=== PATIENT | female | born 1985 | race Caucasian/White ===

== ENCOUNTER 2017-12-27 07:33 | Inpatient (IN) | payer MEDICAID ==
[2017-12-27 08:54] VITALS: BMI 32.2
[2017-12-27] MEDS ORDERED: Oxytocin 30 UNIT 30 UNITS/500 ML BAG IV ONE (08:58)
[2017-12-27 09:39] LABS: BASO % 0.2 % (0.0-2.0); EOS # 0.1 K/uL (0.0-0.7); EOS % 1.1 % (0.0-4.0); HEMOGLOBIN 12.9 g/dL (12.0-16.0); LYMPH # 2.3 K/uL (1.0-4.3); LYMPH % 23.2 % (20.0-40.0); MEAN CELL VOLUME 84.7 fl (81.0-99.0); MEAN CORPUSCULAR HEMOGLOBIN 29.8 pg (27.0-31.0); MEAN CORPUSCULAR HGB CONC 35.2 g/dL (33.0-37.0); MONO # 0.7 K/uL (0.0-0.8); MONO % 6.6 % (0.0-10.0); NEUT # 6.8 K/uL (1.8-7.0); NEUT % 68.9 % (50.0-75.0); NRBC % 0.3 % (0.0-0.0); RBC 4.33 Mil/uL (3.80-5.20); RED CELL DISTRIBUTION WIDTH 15.8 % (11.5-14.5); WHITE BLOOD COUNT 9.9 K/uL (4.8-10.8)
--- NOTE | 2017-12-27 09:46 | OBADHP ---
Datetime: 12/27/2017 09:22 Admit Comment, IP Provider: This is a 32 yo f on 38.3 wk LMP 02/01/17, present to [facility] due to vaginal bleed and abdominal pressure. Pt state that she went to bathroom today at 6:00am and after s he wiped she noticed blood on toilet, and paper. She also state that she have been having this abdomi nal pressure and pain on urination starting this morning. She report feeling mild contraction and inf requent, she cant determine how much. Pt denies gush of fluid, trauma, or falls. PT last entercourse was 7 days ago, she denies fever chills or any other symptoms at moment. Pt state that she attend to all care, and take her medication. She did have an infection in september and was treated with ABx. ROS: Pts denies dizziness, chest pain, sob, abd pain, constipation, calf pain, or any other sympto ms. Allergy: none Med: PMH: Renal stone PSH: none SOcial denies smoke,drink or alcohol use Assessment: This is a 32 yo f on 38.3 wk LMP 02/01/17, present to [facility] due to vaginal bleed and abdominal pressure. Pt admitted for delivery Vitals: WNL Pt is lying comfortable in bed Pelvic exam: lakshmi blood noted on speculum exam, Pt is 5-6cm, 100%, -2 FHR: reassuring Plan Start delivery protocol Prepare Pitocin for after delivery call anesthesia F/U membrane status Monitor strip Monitor vitals case discussed with Dr jennifer Resendez PGY1 OB Hospitalist Addendum: Pt seen and examined by me. Agree w/ above. 32 yo at 38+3 wks c /o blood w/ wiping, abdominal pain and pressure, admitted in labor. On exam: speculum- dark blood se en coming from cx, VE: 6 cm/ 100/ 02 at 8:45 am. FHT reassuring. NST reactive. Will send ua and cx w/ routine ob labs. Will call for her records. (ES) Pelvic Type - PN: Adequate Extremities - PN: Normal Abdomen - PN: Normal Back - PN: Normal Breast - PN: Not Done Lungs - PN: Normal Heart - PN: Normal Thyroid - PN: Not Done Neurologic - PN: Not Done HEENT - PN: Normal General - PN: Normal Comments, ACOG Physical Exam: Pt is lying comfortable with no acute distress Cardio: s1 s2 heard no murmur or extra heart sound Lung are clear in all cuadrant Abd: BS+, mild tendereness on pelvic area, fundus above umbilcus extremities calf non tender pelvic exam : blood noted on speculum exam, 5-6cm, 100%, -2 Gestation - Est Wks by US: 38.3 Vital Signs Provider: Reviewed; Within Normal Limits IP Chief Complaint: Uterine contractions; Vaginal bleeding NICHD Accel Fetus A IP Provider: [id number] FHR Category Provider Fetus A: Category I NICHD Decel Fetus A IP Provider: None Dilatation, Provider: 6 Effacement, Provider: 100 Station, Provider: -2 Genitourinary Exam: Not Done DTRs - PN: Not Done EGA AdmitDate IP: 38.3 IP Adm Impression: Term, intrauterine IP Admit Plan: Admit to unit; Initiate labor protocol Datetime: 12/27/2017 09:00 Presentation-Admit: Vertex IP Fetus A Comments: 140 FHR - Baseline A Provider: 140 NICHD Variability Prov Fetus A: Moderate 6-25bpm
[2017-12-27] MEDS ORDERED: Lactated Ringer's 2,000 ML IV ONE (11:00)
[2017-12-27] MEDS ORDERED: Fentanyl/Bupivacaine HCl 250 ML EPI ONE (12:57)
[2017-12-27 13:38] VITALS: RESP 18; O2SAT 100
[2017-12-27] MEDS ORDERED: Lactated Ringer's 1,000 ML IV SCH (13:45)
[2017-12-27] MEDS: OXYTOCIN/0.9 % NS 20 UNIT/1,000 ML BAG IV SCH ×2 (15:00→17:57)
[2017-12-27] MEDS ORDERED: Oxycodone/Acetaminophen 5/325 mg Tab PO PRN ×2 (15:20→18:08)
[2017-12-27] MEDS ORDERED: Benzocaine/Menthol SPRAY TOP PRN ×2 (15:20→18:08)
--- NOTE | 2017-12-27 15:24 | OBDS ---
MATERNAL INFORMATION Provider Comments: Pt progressed to complete and pushed to deliver a viable male infant through meco nium-stained fluid at 1416. Apgars 9 and 9. Wi 3400 gms, 7#7.9. Nuchal cord x 1 easily reduced. In pramod placed on mother's abdomen. Cord doubly clamped and cut. Cord blood collected. Placenta deliv ered spontaneously intact at 1421. Left periurethral tear bleeding. Straight catheter placed in ur ethra. 3-0 rapide was used to repproximate left periurethral tear for hemostasis. Single interrupte d stitch of 3-0 rapide was placed in small right periurethral tear. Second degree tear was repaired w/ 2-0 rapide and 3-0v. Rectum intact. Pt and baby tolerated the procedure well. EBL 300mL LABOR SUMMARY EDC: 01/07/2018 00:00 No. Babies in Womb: 1
[2017-12-27] MEDS ORDERED: OXYTOCIN/0.9 % NS 20 UNIT/1,000 ML BAG IV SCH (18:08)
[2017-12-28 06:57] LABS: BASO # 0.1 K/uL (0.0-0.2); BASO % 0.7 % (0.0-2.0); EOS % 0.3 % (0.0-4.0); HEMOGLOBIN 11.6 g/dL (12.0-16.0); LYMPH # 1.3 K/uL (1.0-4.3); LYMPH % 9.5 % (20.0-40.0); MEAN CELL VOLUME 86.7 fl (81.0-99.0); MEAN CORPUSCULAR HEMOGLOBIN 28.7 pg (27.0-31.0); MEAN CORPUSCULAR HGB CONC 33.1 g/dL (33.0-37.0); MEAN PLATELET VOLUME 8.2 fl (7.2-11.7); MONO # 0.8 K/uL (0.0-0.8); MONO % 5.6 % (0.0-10.0); NEUT # 11.9 K/uL (1.8-7.0); NEUT % 83.9 % (50.0-75.0); PLATELET COUNT 226 K/uL (130-400); RBC 4.06 Mil/uL (3.80-5.20); WHITE BLOOD COUNT 14.2 K/uL (4.8-10.8)
--- NOTE | 2017-12-28 10:41 | OBPPN ---
Datetime: 12/28/2017 06:49 PP Pain Prov: Within normal limits PP Nausea Prov: Denies PP Heart Prov: Normal PP Lungs Prov: Normal PP Abdomen/Uterus Prov: Normal PP Lochia Prov: Normal PP Vulva/Perineum Prov: Normal PP CVA Tenderness Prov: Normal PP Extremities Prov: Normal PP C/S Incision Prov: Not Applicable PP Progress Prov: Normal PP Impression Prov: Normal progression PP Plan Prov: Continue present management PP Progress Note Prov: Patient seen and examined today in AM at bedside, Patient is now, in her PPD1 today. Patient reports mild pelvic pain that gets relief with medication. Patient states she is ambulating w/o difficulties or dizziness, voiding well with no blood in urine and adequate output, p atient reports passing gas per rectum, but has not had a BM yet, she is tolerating solid food, lochia is more than menses in volume but patient reports is less volume than yesterday. Patient is breastfe eding and bottle feeding. Physical exam: GEN: NAD HEENT: Normocephalic, EOMI RESP: CTA b/l CV: RRR, S1 S2, no murmurs noted. ABD: Soft, BS present, uterus firm at umbilicus level LE: No edema, Davey's negative. A/P 32 y/o today in PPD1 with appropiate post- progression -continue current post- management -VS q 6 h -Motrin 600 mg PO Q6h prn pain -Docusate 100 PO QHS -Encourage and ambulation -D/C kim Hilliard MD PGY1 OB Hospitalist on-call. On rounds I saw and examined this patinet. Agree with note. NATACHA bourne ck prental labs prior to discharge rubella/VZV Vital Signs Provider PP: Reviewed; Within Normal Limits
[2017-12-28 12:40] LABS: ANISOCYTOSIS SLIGHT; BANDS 4 % (0-2); HYPOCHROMIC SLIGHT; LYMPHOCYTE 10 % (20-50); MONOCYTE 4 % (0-10); NEUTROPHIL 82 % (42-75); PLATELET ESTIMATE NORMAL (NORMAL); TOTAL CELLS COUNTED 100
--- NOTE | 2017-12-28 16:43 | OBPPN ---
Datetime: 12/28/2017 16:00 PP Pain Prov: Within normal limits PP Nausea Prov: Denies PP Flatus Prov: Yes PP BM Prov: Yes PP Breasts Prov: Normal PP Heart Prov: Normal PP Lungs Prov: Normal PP Abdomen/Uterus Prov: Normal PP Lochia Prov: Normal PP Vulva/Perineum Prov: Normal PP CVA Tenderness Prov: Normal PP Extremities Prov: Normal PP Progress Prov: Normal PP Impression Prov: Increased temperature PP Plan Prov: Antibiotic therapy PP Progress Note Prov: Notified of Temp 103. She was just seen by social service. She feels some dys uria, some freq, no urgency. No Abd pain; no perinela pain. Ambulating without diff. She had epidural and barron catheter in pl latesha Abd non tender perineum intact no swelling Breast not engorged A; S/P day1; fever PLAN: UA;C_S; Tylenol po and IV Abx...check CBC Vital Signs Provider PP: Reviewed
[2017-12-28 18:47] LABS: SQUAMOUS EPITHIAL 9 /hpf (0-5); URINE BACTERIA MOD (<OCC); URINE BILIRUBIN NEGATIVE (NEGATIVE); URINE BLOOD LARGE (NEGATIVE); URINE CLARITY CLOUDY (Clear); URINE COLOR RED (YELLOW); URINE GLUCOSE (UA) NEG (Normal); URINE LEUKOCYTE ESTERASE LARGE Leu/uL (Negative); URINE PROTEIN 30 mg/dL (NEGATIVE); URINE UROBILINOGEN 0.2-1.0 mg/dL (0.2-1.0)
[2017-12-28 18:59] LABS: BASO # 0.1 K/uL (0.0-0.2); BASO % 0.7 % (0.0-2.0); EOS # 0.1 K/uL (0.0-0.7); EOS % 0.4 % (0.0-4.0); HEMOGLOBIN 12.1 g/dL (12.0-16.0); LYMPH % 12.1 % (20.0-40.0); MEAN CELL VOLUME 85.5 fl (81.0-99.0); MEAN CORPUSCULAR HEMOGLOBIN 28.8 pg (27.0-31.0); MEAN CORPUSCULAR HGB CONC 33.7 g/dL (33.0-37.0); MEAN PLATELET VOLUME 8.2 fl (7.2-11.7); MONO % 6.3 % (0.0-10.0); NEUT # 13.1 K/uL (1.8-7.0); NEUT % 80.5 % (50.0-75.0); NRBC % 0.2 % (0.0-0.0); RBC 4.21 Mil/uL (3.80-5.20); RED CELL DISTRIBUTION WIDTH 16.4 % (11.5-14.5); WHITE BLOOD COUNT 16.3 K/uL (4.8-10.8)
[2017-12-28] MEDS: AMPicillin 2 GM in Sodium Chloride 0.9% 100 ML IVPB SCH (22:45)
[2017-12-29] MEDS: Sodium Chloride 0.9% 1,000 ML IV SCH ×3 (01:05→22:00)
[2017-12-29] MEDS: AMPicillin 2 GM in Sodium Chloride 0.9% 100 ML IVPB SCH ×4 (04:15→21:54)
[2017-12-29 06:49] LABS: BASO % 0.2 % (0.0-2.0); EOS % 0.3 % (0.0-4.0); HEMOGLOBIN 11.4 g/dL (12.0-16.0); LYMPH # 1.7 K/uL (1.0-4.3); MEAN CELL VOLUME 85.5 fl (81.0-99.0); MEAN CORPUSCULAR HEMOGLOBIN 29.2 pg (27.0-31.0); MEAN CORPUSCULAR HGB CONC 34.1 g/dL (33.0-37.0); MEAN PLATELET VOLUME 8.2 fl (7.2-11.7); MONO % 8.2 % (0.0-10.0); NEUT # 9.3 K/uL (1.8-7.0); NEUT % 77.3 % (50.0-75.0); RBC 3.91 Mil/uL (3.80-5.20); RED CELL DISTRIBUTION WIDTH 16.3 % (11.5-14.5)
[2017-12-29] MEDS ORDERED: Measles, Mumps, and Rubella 0.5 ML VIAL SC ONE (09:00)
[2017-12-29 11:11] LABS: BASO % 0.3 % (0.0-2.0); EOS % 0.3 % (0.0-4.0); HEMOGLOBIN 11.6 g/dL (12.0-16.0); LYMPH # 1.4 K/uL (1.0-4.3); MEAN CELL VOLUME 85.9 fl (81.0-99.0); MEAN CORPUSCULAR HEMOGLOBIN 29.3 pg (27.0-31.0); MEAN CORPUSCULAR HGB CONC 34.2 g/dL (33.0-37.0); MEAN PLATELET VOLUME 8.4 fl (7.2-11.7); MONO % 7.5 % (0.0-10.0); NEUT # 10.5 K/uL (1.8-7.0); NEUT % 80.9 % (50.0-75.0); NRBC % 0.1 % (0.0-0.0); RBC 3.96 Mil/uL (3.80-5.20); RED CELL DISTRIBUTION WIDTH 16.2 % (11.5-14.5)
--- NOTE | 2017-12-29 11:24 | OBPPN ---
Datetime: 12/29/2017 01:01 PP Pain Prov: Within normal limits PP Nausea Prov: Denies PP Flatus Prov: Yes PP BM Prov: No PP Breasts Prov: Normal PP Heart Prov: Normal PP Lungs Prov: Normal PP Abdomen/Uterus Prov: Normal PP Lochia Prov: Normal PP CVA Tenderness Prov: Normal PP Extremities Prov: Normal PP Progress Prov: Normal PP Comments Phys Exam Prov: See Pregress note PE breast nonengorged uterus firm, nt; 1cm below umbilicus PP Plan Prov: Continue present management; Antibiotic therapy PP Impression Other Prov: PP fever PP Progress Note Prov: Patient seen and examined this AM at bedside after I am notified by RN of Tem p 101.8 F and patient is feeling cold. Patient is today in her PPD2 after . Patient c/o some chil ls, and feeling cold, also c/o mild sore throat and some dysuria, patient denies any other symptom at this time, she denies cough, chest pain, SOB, palpitations, calf pain, abdominal pain, COY, dizziness , N/V. Patient is ambulating in the room, she states she is passing gas per rectum, but has not had a BM yet, she reports lochia is less than menses in volume. Physical Exam GEN: NAD HEENT: Normocephalic, EOMI, pharynx w/o erythema or exudate noted RESP: CTA B/L, no wheezing CV: RRR, S1 S2 present, no murmurs noted ABD: Soft, uterus below umbilicus level, no tender LE: No edema, Davey's negative Assessment/Plan The patient is s/p NVD on her PPD2 now, with spikes of fever during the afternoon yesterday a nd now, the patient is at this time receiving Antbx Ampicllin and Genta IV -We will continue to monitor VS and progress -Blood cultures stat with spike of fever -Tylenol 650 mg PO now -IVF NS 0.9% 150 ml/hr -CBC w/diff in AM -F/u of urine culture results Case discussed with attending Dr Belem Duran MD PGY1 obh attending addendum: pt seen _ examined by me. i: pp fever may be 2ndary uti h/o nephrolithiasis and uti p: KUB urine and blood cx pending. Vital Signs Provider PP: Reviewed Vital Signs Provider Details PP: tmax 103 brink 102.3
[2017-12-29] MEDS ORDERED: Lactated Ringer's 1,000 ML IV SCH ×2 (11:30)
--- NOTE | 2017-12-29 12:18 | RAD ---
Date of service: 12/29/2017 HISTORY: evaluate for kidney stone COMPARISON: No prior. FINDINGS: BOWEL: Moderate stool retention. No bowel obstruction appreciated. BONES: Normal. OTHER FINDINGS: Double-J left ureteral stent in place. No gross urolithiasis appreciated. IMPRESSION: Double-J left ureteral stent in place. No gross urolithiasis appreciated. Stool retention.
[2017-12-30] MEDS: AMPicillin 2 GM in Sodium Chloride 0.9% 100 ML IVPB SCH ×2 (05:06→09:19)
--- NOTE | 2017-12-30 11:27 | OBDCSUM ---
Datetime: 12/30/2017 08:00 Discharged to, Provider: Home Follow up at, Provider: your doctor Disch Instr Activity: Normal activity; May be up to bathroom; May be up for meals; May Shower Disch Instr Diet: Regular Discharge Instructions, Provider: Routine instructions given Discharge Diagnosis, Provider: Term Delivered Discharge Time: 12/30/2017 11:00 Follow up in weeks, Provider: in 4 to 6 weeks Disch Referrals: None Contraception discussed, Prov: Yes Disch Activity Restrictions: No lifting; No sexual activity; Nothing in vagina - [place], tampon s, douche Discharge Comment, Provider: EGA:38.3 Diagnosis: NVD risk factors: No known risk factors : 12/27/17 @ 14:16 Summary: Pt had fever 1 day after PP which was addressed with Gent/amp, Pt is currently afebrile for more than 24h, abx were d/c, pt feeling better, Lochia less than menses, pass gas/Bm ab le to ambulate, and void with no difficulty. Blood type: B+ CBC : 11.6/35.7 Discharge Instructions: Encourage PNV 1 tab po daily Ibuprofen 600mg 1 tab prn for mild-mod pain. ER precations: If excessive bleeding or fever without relief from medication, go to ED F/U in 4-6 weeks Case discussed with Dr. Nathan resident YSabri PGY1 Contraception after Delivery: IUD; Undecided
--- NOTE | 2017-12-30 11:27 | OBPPN ---
Datetime: 12/30/2017 07:05 PP Pain Prov: Within normal limits PP Nausea Prov: Denies PP Flatus Prov: Yes PP BM Prov: Yes PP Heart Prov: Normal PP Lungs Prov: Normal PP Abdomen/Uterus Prov: Normal PP Lochia Prov: Normal PP CVA Tenderness Prov: Abnormal PP Extremities Prov: Normal PP Comments Phys Exam Prov: See progress note. mild CVA tenderness on L side, patient reports chronic pain on L side from prior renal stone proce lize, at baseline PP Impression Prov: Normal progression PP Plan Prov: Discharge PP Progress Note Prov: Patient seen and examined this AM, s/p today her PPD3, patient sates fee ling well and has been afebrile for more than 24 h. Patient is ambulating w/o difficulties or dizzine ss, voiding w/o difficulties and denies dysuria today and no blood noted in urine, lochia is less trever n menses in volume, she is passing gas but has not had a BM yet, tolerates oral food without nausea o r V. Patient denies COY, chills, abdominal pain, chest pain, cough, palpitations, calf pain. Patient r eports she is and bottle-feeding baby. O: VS WNL BP 103/69 HR 57, Temp 98.1. Blood cult 12/28 reports no growth. Physical Exam GEN: NAD HEENT: Normocephalic, EOMI RESP: CTA b/l CV: RRR, S1 s2 present, no murmurs noted Abdomen: Soft, BS present, uterus below umbilicus level and no tenderness to palpation of abd. LE: No edema, Davey's negative. Assessment/plan: 32 y/o now, afebrile more than 24h, with VS wnl, with good progression today in he r PPD3 -D/C IV Antibiotics -Motrin 600 mg PO Q6h prn pain -Encourage oral hydration -Encourage and ambulation -D/C home today with instruction to f/u with PMD. Polo Durna MD PGY1 Attending addendum: I saw and examined the patient myself this morning. I reviewed the resident note above and agree w ith findings and management. DC home today. pt to schedule f/u appt with her OB provider in [place] Shana Nathan MD Vital Signs Provider PP: Reviewed; Within Normal Limits
[2017-12-30 21:56] VITALS: BP 112/68; PULSE 89; TEMP 98.7
[2017-12-31 09:07] LABS: RUBELLA AB (IGG) <0.90 index
== END 2017-12-30 15:15 | disposition home or self-care (01) | DRG 372 ==
LOC: H.EROB2 07:33 → H.OB/GYN 08:55 → INTOOBSV 08:55 → UNDOADMOB 08:55 → H.L&D 08:55 → H.OB/GYN 13:06 → H.L&D 17:52 → H.OB/GYN 17:52 → OBSVTOIN 12-29 13:06 → INTOOBSV 12-29 13:06 → UNDODISIN 12-30 15:15
PROVIDERS: ADMIT Obstetrics & Gynecology; ATTEND Obstetrics & Gynecology
PROC: 10E0XZZ Delivery of Products of Conception, External Approach (ICD-10-PCS; principal; 2017-12-27)
PROC: 0KQM0ZZ Repair Perineum Muscle, Open Approach (ICD-10-PCS; 2017-12-27)
PROC: 4A1HXCZ Monitoring of Products of Conception, Cardiac Rate, External Approach (ICD-10-PCS; 2017-12-27)
DX: O77.0 Labor and delivery complicated by meconium in amniotic fluid (principal); O86.4 Pyrexia of unknown origin following delivery; O86.20 Urinary tract infection following delivery, unspecified; O71.82 Other specified trauma to perineum and vulva; O69.81X0 Labor and delivery complicated by cord around neck, without compression, not applicable or unspecified; Z37.0 Single live birth; Z3A.38 38 weeks gestation of pregnancy; B96.20 Unspecified Escherichia coli [E. coli] as the cause of diseases classified elsewhere; Z87.442 Personal history of urinary calculi